=== PATIENT | female | born 1965 | race Caucasian/White ===

== ENCOUNTER 2021-06-22 10:15 | Inpatient (IN) ==
[2021-06-22] MEDS ORDERED: CeFAZolin Syr 2,000MG/20 ML 2,000 MG/20 ML SYRINGE IVPB ONE (11:07)
[2021-06-22] MEDS ORDERED: Ringers Solution, Lactated 1,000 ML IVC SCH (11:15)
[2021-06-22] MEDS ORDERED: Famotidine 20 MG/2 ML VIAL IVP ONE (11:28)
[2021-06-22] MEDS ORDERED: *HR* OxyCODONE Immed Rel 5 MG TABLET PO PRN (11:30)
[2021-06-22] MEDS ORDERED: Albuterol 2.5 MG/3 ML NEBULIZER IH ONE (11:30)
[2021-06-22] MEDS ORDERED: Ondansetron 4 MG/2 ML VIAL IVP PRN ×2 (11:30→19:23)
[2021-06-22] MEDS ORDERED: Promethazine 6.25 MG in Water for inj. (sterile) 20 ML IVPB PRN (11:30)
[2021-06-22] MEDS ORDERED: *HR* Labetalol 20 MG/4 ML SYRINGE IVP PRN (11:30)
[2021-06-22] MEDS ORDERED: *HR* Meperidine 25 MG/ML SYRINGE IVP PRN (11:30)
[2021-06-22] MEDS ORDERED: *HR* HYDROmorphone PF 0.5 MG/0.5 ML SYRINGE IVP PRN (11:30)
[2021-06-22] MEDS ORDERED: Ipratropium Neb 0.5 MG NEBULIZER IH PRN (11:30)
[2021-06-22] MEDS ORDERED: Albuterol 2.5 MG/3 ML NEBULIZER IH PRN (11:30)
[2021-06-22] MEDS ORDERED: Pregabalin 75 MG CAPSULE PO ONE (11:31)
[2021-06-22] MEDS ORDERED: tiZANidine 4 MG TABLET PO ONE (11:31)
[2021-06-22] MEDS ORDERED: Celecoxib 200 MG CAPSULE PO ONE (11:31)
[2021-06-22] MEDS ORDERED: *HR* Propofol 200 MG/20 ML VIAL IVP ONE (12:46)
[2021-06-22] MEDS ORDERED: *HR* Rocuronium Bromide 50 MG/5 ML VIAL ONE (12:46)
[2021-06-22] MEDS ORDERED: Lidocaine -MPF 2% 2 ML VIAL ONE (12:46)
[2021-06-22] MEDS ORDERED: Ondansetron 4 MG/2 ML VIAL ONE (12:46)
[2021-06-22] MEDS ORDERED: *HR* FentaNYL (PF) 100 MCG/2 ML VIAL ONE ×2 (14:56→16:32)
[2021-06-22] MEDS ORDERED: *HR* Midazolam HCl 2 MG/2 ML VIAL ONE (14:56)
[2021-06-22] MEDS ORDERED: EPHEDrine 50 MG/ML VIAL ONE (15:04)
[2021-06-22] MEDS ORDERED: Lidocaine -MPF 4% 5 ML AMPUL ONE (15:08)
[2021-06-22] MEDS ORDERED: Sugammadex Sodium 200 MG/2 ML VIAL IV ONE (15:59)
[2021-06-22] MEDS: Famotidine 20 MG TABLET PO SCH (19:53)
[2021-06-22] MEDS: *HR* HYDROcodone/Acet 5/325 mg TABLET PO PRN (19:53)
[2021-06-22] MEDS: Gabapentin 300 MG CAPSULE PO SCH (19:54)
[2021-06-22] MEDS: Sennosides/Docusate Sodium TABLET PO SCH (19:54)
[2021-06-22] MEDS: *HR* Heparin 5,000 UNIT/ML VIAL SQ SCH (19:54)
[2021-06-22] MEDS: 0.9 % Sodium Chloride 1,000 ML IVC SCH (20:02)
[2021-06-22] MEDS: Ipratropium/Albuterol Neb 3 ML IH SCH ×2 (20:19→23:47)
[2021-06-23] MEDS: *HR* HYDROcodone/Acet 5/325 mg TABLET PO PRN ×3 (00:29→09:44)
[2021-06-23] MEDS: Ipratropium/Albuterol Neb 3 ML IH SCH ×6 (03:44→23:46)
[2021-06-23] MEDS: *HR* Heparin 5,000 UNIT/ML VIAL SQ SCH ×2 (05:34→17:47)
[2021-06-23] MEDS ORDERED: Ketorolac 30 MG/ML VIAL IVP PRN (06:00)
[2021-06-23 06:07] LABS: Hematocrit 34.3 % (35.3-44.9); Hemoglobin 11.7 g/dL (11.5-15.4); Mean Corpuscular HGB Conc 34.1 g/dL (31.6-35.5); Mean Corpuscular Hemoglobin 31.7 pg (28.0-33.3); Mean Platelet Volume 10.4 fL (9.4-12.4); Platelet Count 306 K/mcL (140-400); Red Blood Count 3.69 M/mcL (3.82-4.97); Red Cell Distribution Width 13.1 % (11.5-14.5)
[2021-06-23 06:10] LABS: White Blood Count 13.8 K/mcL (4.3-11.1)
[2021-06-23 06:28] LABS: BUN/Creatinine Ratio 22 (6-26); Blood Urea Nitrogen 13 mg/dL (6-20); Calcium 8.6 mg/dL (8.6-10.3); Carbon Dioxide 24 mEq/L (23-29); Chloride 101 mEq/L (98-107); Glucose 170 mg/dL (70-105); Magnesium 1.4 mg/dL (1.6-2.6); Osmolality,Calculated 280 (280-300); Potassium 3.7 mEq/L (3.5-5.1); Sodium 133 mEq/L (136-145); eGFR For African Americans > 60 (> 60); eGFR For Non-African Americans > 60 (> 60)
[2021-06-23] MEDS: Gabapentin 300 MG CAPSULE PO SCH ×3 (07:30→20:48)
[2021-06-23] MEDS: Sennosides/Docusate Sodium TABLET PO SCH ×2 (07:31→20:48)
[2021-06-23] MEDS: Famotidine 20 MG TABLET PO SCH ×2 (07:31→20:48)
[2021-06-23] MEDS: 0.9 % Sodium Chloride 1,000 ML IVC SCH (08:57)
[2021-06-23] MEDS: Ketorolac 30 MG/ML VIAL IVP SCH ×3 (12:08→23:54)
[2021-06-24] MEDS: Ipratropium/Albuterol Neb 3 ML IH SCH ×6 (04:04→23:17)
[2021-06-24 04:48] LABS: BUN/Creatinine Ratio 18 (6-26); Blood Urea Nitrogen 10 mg/dL (6-20); Calcium 8.7 mg/dL (8.6-10.3); Carbon Dioxide 26 mEq/L (23-29); Chloride 102 mEq/L (98-107); Glucose 120 mg/dL (70-105); Osmolality,Calculated 276 (280-300); Potassium 4.8 mEq/L (3.5-5.1); Sodium 133 mEq/L (136-145); eGFR For African Americans > 60 (> 60); eGFR For Non-African Americans > 60 (> 60)
[2021-06-24] MEDS: *HR* Heparin 5,000 UNIT/ML VIAL SQ SCH ×2 (06:13→18:19)
[2021-06-24] MEDS: Ketorolac 30 MG/ML VIAL IVP SCH ×4 (06:13→23:23)
[2021-06-24] MEDS: Sennosides/Docusate Sodium TABLET PO SCH ×2 (09:01→20:12)
[2021-06-24] MEDS: Famotidine 20 MG TABLET PO SCH ×2 (09:01→20:12)
[2021-06-24] MEDS: Gabapentin 300 MG CAPSULE PO SCH ×3 (09:01→20:12)
[2021-06-25] MEDS: Ipratropium/Albuterol Neb 3 ML IH SCH ×6 (03:56→23:45)
[2021-06-25] MEDS: *HR* Heparin 5,000 UNIT/ML VIAL SQ SCH ×2 (05:12→18:01)
[2021-06-25] MEDS: Ketorolac 30 MG/ML VIAL IVP SCH ×4 (05:12→23:39)
[2021-06-25 06:25] LABS: BUN/Creatinine Ratio 16 (6-26); Blood Urea Nitrogen 9 mg/dL (6-20); Carbon Dioxide 24 mEq/L (23-29); Chloride 102 mEq/L (98-107); Glucose 122 mg/dL (70-105); Magnesium 1.8 mg/dL (1.6-2.6); Osmolality,Calculated 276 (280-300); Potassium 4.3 mEq/L (3.5-5.1); Sodium 133 mEq/L (136-145); eGFR For African Americans > 60 (> 60); eGFR For Non-African Americans > 60 (> 60)
[2021-06-25] MEDS: Famotidine 20 MG TABLET PO SCH ×2 (09:07→21:19)
[2021-06-25] MEDS: Sennosides/Docusate Sodium TABLET PO SCH ×2 (09:07→21:19)
[2021-06-25] MEDS: Gabapentin 300 MG CAPSULE PO SCH ×3 (09:07→21:19)
[2021-06-26] MEDS: Ipratropium/Albuterol Neb 3 ML IH SCH ×2 (04:10→08:27)
[2021-06-26 04:31] VITALS: TEMP 97.9
[2021-06-26] MEDS: Ketorolac 30 MG/ML VIAL IVP SCH (06:17)
[2021-06-26] MEDS: *HR* Heparin 5,000 UNIT/ML VIAL SQ SCH (06:17)
[2021-06-26] MEDS: Gabapentin 300 MG CAPSULE PO SCH (08:01)
[2021-06-26] MEDS: Sennosides/Docusate Sodium TABLET PO SCH (08:01)
[2021-06-26] MEDS: Famotidine 20 MG TABLET PO SCH (08:01)
[2021-06-26 08:14] VITALS: BP 141/70; PULSE 109
[2021-06-26 08:30] VITALS: O2SAT 98
[2021-06-26] MEDS: *HR* HYDROcodone/Acet 5/325 mg TABLET PO PRN (09:30)
== END 2021-06-26 09:59 | disposition home or self-care (01) | DRG 120 ==
LOC: SAMDAY 10:15 → 2NNU 19:09
PROVIDERS: ADMIT Thoracic Surgery (Cardiothoracic Vascular Surgery); ATTEND Thoracic Surgery (Cardiothoracic Vascular Surgery)

== ENCOUNTER 2021-07-09 09:46 | Observation (INO) ==
[2021-07-09] MEDS ORDERED: Isovue-370 500 ML BOTTLE IVP ONE (09:54)
[2021-07-09] MEDS ORDERED: 0.9 % Sodium Chloride 1,000 ML IV ONE (10:20)
[2021-07-09] MEDS ORDERED: Morphine Sulfate 2 MG/ML SYRINGE IVP ONE (10:20)
[2021-07-09 10:47] LABS: Basophils # 0.1 K/mcL (0.0-0.2); Basophils % 0.6 %; Eosinophils # 0.1 K/mcL (0.0-0.6); Eosinophils % 0.7 %; Hematocrit 32.4 % (35.3-44.9); Hemoglobin 10.9 g/dL (11.5-15.4); Immature Granulocytes % 0.2 % (0-4); Lymphocytes # 1.1 K/mcL (0.6-4.6); Lymphocytes % 8.7 %; Mean Corpuscular HGB Conc 33.6 g/dL (31.6-35.5); Mean Corpuscular Hemoglobin 30.4 pg (28.0-33.3); Mean Corpuscular Volume 90.5 fL (83.0-100.0); Mean Platelet Volume 9.1 fL (9.4-12.4); Monocytes # 0.8 K/mcL (0.0-1.3); Monocytes % 6.2 %; Neutrophils # 10.4 K/mcL (1.6-8.9); Platelet Count 640 K/mcL (140-400); Red Blood Count 3.58 M/mcL (3.82-4.97); Red Cell Distribution Width 12.4 % (11.5-14.5); Segmented Neutrophils % 83.6 %; White Blood Count 12.5 K/mcL (4.3-11.1)
[2021-07-09 10:55] LABS: INR 1.1; Prothrombin Time 12.7 Seconds (9.4-12.1)
[2021-07-09 10:57] LABS: Activated Partial Thrombo Time 31.8 Seconds (26.0-36.0)
[2021-07-09 11:09] LABS: Alanine Aminotransferase 26 Units/L (7-52); Albumin 3.7 g/dL (3.5-5.7); Aspartate Amino Transferase 16 Units/L (13-39); BUN/Creatinine Ratio 24 (6-26); Bilirubin,Direct 0.1 mg/dL (0.0-0.2); Bilirubin,Indirect 0.3 mg/dL (0.0-1.0); Bilirubin,Total 0.4 mg/dL (0.3-1.0); Blood Urea Nitrogen 11 mg/dL (6-20); Calcium 9.4 mg/dL (8.6-10.3); Carbon Dioxide 24 mEq/L (23-29); Chloride 100 mEq/L (98-107); Globulin 3.6 g/dL (2.4-3.5); Glucose 135 mg/dL (70-105); Osmolality,Calculated 279 (280-300); Potassium 3.7 mEq/L (3.5-5.1); Sodium 134 mEq/L (136-145); Total Protein 7.3 g/dL (6.4-8.9); eGFR For African Americans > 60 (> 60); eGFR For Non-African Americans > 60 (> 60)
[2021-07-09 11:10] LABS: Troponin I < 0.03 ng/mL (< 0.04)
[2021-07-09 11:30] LABS: Alkaline Phosphatase 76 Units/L (34-104)
[2021-07-09] MEDS ORDERED: Ondansetron 4 MG/2 ML VIAL IVP PRN (12:37)
[2021-07-09] MEDS ORDERED: Naloxone 0.4 MG/ML INJ IVP PRN (12:37)
[2021-07-09] MEDS ORDERED: Ketorolac 30 MG/ML VIAL IVP ONE (13:14)
[2021-07-09] MEDS ORDERED: Perflutren Lipid Microsphere 1.3 ML in 0.9 % Sodium Chloride 8.7 ML IVP PRN (13:26)
[2021-07-09] MEDS: Gabapentin 300 MG CAPSULE PO SCH ×2 (15:39→20:28)
[2021-07-09] MEDS: Ketorolac 30 MG/ML VIAL IVP PRN (20:27)
[2021-07-10] MEDS: Ketorolac 30 MG/ML VIAL IVP PRN ×3 (03:27→20:04)
[2021-07-10 03:55] LABS: Basophils # 0.1 K/mcL (0.0-0.2); Basophils % 0.9 %; Eosinophils # 0.3 K/mcL (0.0-0.6); Eosinophils % 3.7 %; Hemoglobin 9.4 g/dL (11.5-15.4); Immature Granulocytes % 0.3 % (0-4); Lymphocytes # 1.4 K/mcL (0.6-4.6); Lymphocytes % 18.3 %; Mean Corpuscular HGB Conc 33.6 g/dL (31.6-35.5); Mean Corpuscular Hemoglobin 30.7 pg (28.0-33.3); Mean Corpuscular Volume 91.5 fL (83.0-100.0); Mean Platelet Volume 9.3 fL (9.4-12.4); Monocytes # 0.9 K/mcL (0.0-1.3); Monocytes % 10.9 %; Neutrophils # 5.2 K/mcL (1.6-8.9); Platelet Count 539 K/mcL (140-400); Red Blood Count 3.06 M/mcL (3.82-4.97); Red Cell Distribution Width 12.5 % (11.5-14.5); Segmented Neutrophils % 65.9 %; White Blood Count 7.9 K/mcL (4.3-11.1)
[2021-07-10 04:14] LABS: BUN/Creatinine Ratio 29 (6-26); Blood Urea Nitrogen 13 mg/dL (6-20); Calcium 8.6 mg/dL (8.6-10.3); Carbon Dioxide 24 mEq/L (23-29); Chloride 102 mEq/L (98-107); Glucose 103 mg/dL (70-105); Osmolality,Calculated 278 (280-300); Potassium 3.7 mEq/L (3.5-5.1); Sodium 134 mEq/L (136-145); eGFR For African Americans > 60 (> 60); eGFR For Non-African Americans > 60 (> 60)
[2021-07-10] MEDS: *HR* Enoxaparin 30 MG/0.3 ML SYRINGE SQ SCH (05:57)
[2021-07-10] MEDS: Gabapentin 300 MG CAPSULE PO SCH ×3 (08:37→20:05)
[2021-07-10] MEDS: *HR* HYDROcodone/Acet 5/325 mg TABLET PO PRN (08:37)
[2021-07-10] MEDS ORDERED: *HR* Metoprolol 5 MG/5 ML VIAL IVP ONE (08:39)
[2021-07-10] MEDS ORDERED: Regadenoson 0.4 MG/5 ML SYRINGE IVP ONE (09:09)
[2021-07-10] MEDS: methylPREDNISolone 4 MG TABLET PO SCH ×2 (15:34→20:06)
[2021-07-11 03:33] VITALS: TEMP 98.3
[2021-07-11] MEDS: *HR* Enoxaparin 30 MG/0.3 ML SYRINGE SQ SCH (06:07)
[2021-07-11 06:17] LABS: Basophils % 0.2 %; Eosinophils % 0.1 %; Hematocrit 30.3 % (35.3-44.9); Hemoglobin 10.5 g/dL (11.5-15.4); Immature Granulocytes % 0.4 % (0-4); Lymphocytes # 0.9 K/mcL (0.6-4.6); Lymphocytes % 9.9 %; Mean Corpuscular HGB Conc 34.7 g/dL (31.6-35.5); Mean Corpuscular Hemoglobin 31.5 pg (28.0-33.3); Mean Platelet Volume 9.6 fL (9.4-12.4); Monocytes # 0.5 K/mcL (0.0-1.3); Monocytes % 5.3 %; Neutrophils # 7.2 K/mcL (1.6-8.9); Platelet Count 617 K/mcL (140-400); Red Blood Count 3.33 M/mcL (3.82-4.97); Red Cell Distribution Width 12.2 % (11.5-14.5); Segmented Neutrophils % 84.1 %; White Blood Count 8.6 K/mcL (4.3-11.1)
[2021-07-11 06:46] LABS: BUN/Creatinine Ratio 33 (6-26); Blood Urea Nitrogen 17 mg/dL (6-20); Calcium 8.9 mg/dL (8.6-10.3); Carbon Dioxide 27 mEq/L (23-29); Chloride 101 mEq/L (98-107); Glucose 154 mg/dL (70-105); Magnesium 1.9 mg/dL (1.6-2.6); Osmolality,Calculated 289 (280-300); Potassium 4.1 mEq/L (3.5-5.1); Sodium 137 mEq/L (136-145); eGFR For African Americans > 60 (> 60); eGFR For Non-African Americans > 60 (> 60)
[2021-07-11 07:00] VITALS: BP 110/68; PULSE 86; O2SAT 95
[2021-07-11] MEDS: Gabapentin 300 MG CAPSULE PO SCH (07:40)
[2021-07-11] MEDS: methylPREDNISolone 4 MG TABLET PO SCH ×2 (07:40→11:16)
[2021-07-11] MEDS: *HR* HYDROcodone/Acet 5/325 mg TABLET PO PRN (11:16)
[2021-07-11] MEDS ORDERED: methylPREDNISolone 4 MG TABLET PO ONE (21:00)
[2021-07-12] MEDS ORDERED: methylPREDNISolone 4 MG TABLET PO SCH (09:00)
[2021-07-13] MEDS ORDERED: methylPREDNISolone 4 MG TABLET PO SCH (09:00)
[2021-07-14] MEDS ORDERED: methylPREDNISolone 4 MG TABLET PO SCH (09:00)
[2021-07-15] MEDS ORDERED: methylPREDNISolone 4 MG TABLET PO SCH (09:00)
== END 2021-07-11 13:34 | disposition home or self-care (01) ==
LOC: 3BNU 09:46 → EMEROOARM 09:46 → SUATTDRO 12:40 → 3BNU 14:30
PROVIDERS: ADMIT Internal Medicine; ATTEND Internal Medicine